=== PATIENT | male | born 1955 | race Caucasian/White ===

== ENCOUNTER 2020-02-19 14:42 | Inpatient (IN) | payer OTHER ==
[~2020-02-19] VITALS: Ht 175.2 cm; Wt 104.9 kg
[2020-02-19] MEDS ORDERED: TYLENOL325 M1 PO (15:07)
[2020-02-19] MEDS ORDERED: VENTOLIN,PR2 MG/5 ML PO (15:08)
[2020-02-19] MEDS ORDERED: AMIODARONE HYD200 MG PO (15:10)
[2020-02-19] MEDS ORDERED: ASPIRIN ADULT L81 M1 PO (15:11)
[2020-02-19] MEDS ORDERED: BUSPIRONE10 MG PO (15:12)
[2020-02-19] MEDS ORDERED: CELEXA10 MG PO (15:13)
[2020-02-19] MEDS ORDERED: VITAMIN B-125000 MC2 PO (15:15)
[2020-02-19] MEDS ORDERED: COLACE100 MG PO (15:16)
[2020-02-19] MEDS ORDERED: TRICOR145 M1 PO (15:16)
[2020-02-19] MEDS ORDERED: NOVOLOG FL100 UNIT/2 SC (15:17)
[2020-02-19] MEDS ORDERED: IMDUR SA30 MG PO (15:18)
[2020-02-19] MEDS ORDERED: PHILLIPS' MILK311 MG PO (15:19)
[2020-02-19] MEDS ORDERED: METOPROLOL TART75 MG PO (15:20)
[2020-02-19] MEDS ORDERED: GENVOYA TABLET1 EACH PO (15:21)
[2020-02-19] MEDS ORDERED: MELATONIN3 MG PO (15:22)
[2020-02-19] MEDS ORDERED: LATU80TA PO (15:23)
[2020-02-19] MEDS ORDERED: ZOFRAN4 MG IV (15:24)
[2020-02-19] MEDS ORDERED: TRILEPTAL300 MG PO (15:25)
[2020-02-19] MEDS ORDERED: PROTONIX40 MG PO (15:25)
[2020-02-19] MEDS ORDERED: POTASSIUM CHLO20 ME3 PO (15:27)
[2020-02-19] MEDS ORDERED: CRESTOR20 M1 PO (15:28)
[2020-02-19] MEDS ORDERED: FLOMAX0.4 MG PO (15:32)
[2020-02-19] MEDS ORDERED: Coumadin5 MG PO (15:33)
--- NOTE | 2020-02-19 16:30 | NUR ---
ALEXANDRAAGUSTÍN a 64 year old M admitted via stretcher from the ADMITTING as a voluntary admission. Arrived on unit at 1630. ALLERGIES: SULFA. Vital signs are: 97.1-74-18 119/70. The client signed the following forms with stated understanding: Authorization For The Release of Medical Information, Clothing List, Consent to Voluntary Admission and Hospitalization, Consent and Release Forms/Receipt of Rights, Acknowledgement of Advance Directive Information, Behavioral Health Consent Form, and Informed Consent of Medications. Admitted under the services of Dr. MOLLY MONTANOKALA. A search was conducted and hazardous articles were removed. Client was oriented to the unit. MARTELL CARLOS
[2020-02-19 16:38] VITALS: BP 119/70
[2020-02-19] MEDS ORDERED: VITAMIN E400 UNI1 PO (16:38)
[2020-02-19] MEDS ORDERED: JARDIANCE25 MG PO (16:40)
[2020-02-19] MEDS ORDERED: GLUCOPHAGE1000 MG PO (16:42)
[2020-02-19] MEDS ORDERED: DEXILANT60 M1 PO (16:44)
[2020-02-19] MEDS ORDERED: ZESTRIL10 MG PO (16:45)
[2020-02-19] MEDS ORDERED: VASCEPA1 G1 PO (16:50)
[2020-02-19] MEDS ORDERED: MULTIVITAMIN PO (16:55)
[2020-02-19] MEDS ORDERED: FOLIC ACID PO (16:55)
--- NOTE | 2020-02-19 17:00 | NUR ---
DR. SANDOVAL NOTIFIED OF NEW ADMISSION, MEDICATION AND DIAGNOSIS UPDATE FOR REVIEW. PATEINT WILL BE UNDER THE CARE OF DR. BRIGHT.
[2020-02-19] MEDS ORDERED: OZEMPIC1 MG/0.75 SQ (17:02)
--- NOTE | 2020-02-19 17:05 | NUR ---
NASAL SWAB COLLECTED FOR COVID 19, TOLERATED WELL.
[2020-02-19 17:24] LABS: BILIRUBIN Negative; BLOOD Trace-Intact (NEGATIVE); CLARITY Clear (CLEAR); COLOR Yellow (YELLOW); GLUCOSE 3+; KETONE Negative; LEUKO ESTERASE Negative (NEGATIVE); NITRITE Negative (NEGATIVE); SPECIFIC GRAVITY 1.025 (1.001-1.030); UROBILINOGEN 0.2 E.U./dl (0.0-1.0)
[2020-02-19 17:30] LABS: BACTERIA TRACE; EPITHELIAL CELLS 0-2; MUCOUS TRACE; RBC 16-20 rbc/hpf (0-2); WBC 0-2 wbc/hpf (0-5)
--- NOTE | 2020-02-19 17:48 | NUR ---
CONSULT FOR MEDICAL MANAGEMENT PLACED UNDER PER .
[2020-02-19 17:59] LABS: INTERNATIONAL NORM RATIO 1.1 (2.0-3.5)
--- NOTE | 2020-02-19 18:30 | NUR ---
DR. BARNES NOTIFIED OF PATIENT REPORTING HAVING 1 SEIZURE YEARS AGO. NEW ORDER FOR DEPAKOTE 250MG PO TID.
[2020-02-19 18:44] VITALS: BP 119/70
--- NOTE | 2020-02-19 19:04 | NUR ---
DR. SANDOVAL NOTIFIED OF INR RESULTS AND LAST INR FROM [facility], NEW ORDERS FOR COUMADIN 10MG TO BE GIVEN AT HS.
--- NOTE | 2020-02-19 19:21 | NUR ---
MARTELL ANNE NOTIFIED OF NEW ADMISSION.
[2020-02-19 20:00] VITALS: BP 111/74
--- NOTE | 2020-02-19 21:48 | NUR ---
Patient alert and oriented x4. Mood calm,pleasant,cooperative but with slight underlying irritability noted. Patient interactive with staff and other patients. Patient denies any SI/HI or hallucinations at this time. Encouraged patient to contract for safety when having these thoughts. No s/s of any responding to any internal stimuli noted at this time. Patient compliant with HS medications without any difficulty. Provided 1:1 for emotional support and therapeutic communication. Redirected when needed. Plan to continue to encourage medication compliance. Continue to encourage patient to contract for safety,continue to use his coping skills,and encourage patient to talk with staff. Also will continue to provide emotional support,therapeutic communication and continue to redirect when needed/appropriate. Will also continue to monitor moods/behaviors. Q 15 minute safety checks continued and maintained. See [facility] flowsheet for further documentation.
--- NOTE | 2020-02-20 05:40 | NUR ---
Patient slept approx. 7.5 hours throughout shift. Q 15 minute safety checks continued and maintained.
[2020-02-20 06:08] LABS: BASO % 0.4 % (0.0-1.0); EOS # 0.3 10*3/uL (0.0-0.4); EOS % 3.4 % (1.0-4.0); HEMATOCRIT 42.2 % (42.0-52.0); LYMPH % 26.4 % (27.0-41.0); MEAN CELL VOLUME 81.3 fl (80.0-94.0); MEAN CORPUSCULAR HGB 26.6 pg (27.0-31.0); MEAN CORPUSCULAR HGB CONC 32.7 g/dl (33.0-37.0); MEAN PLATELET VOLUME 8.8 fl (9.6-12.3); MONO # 0.9 10*3/uL (0.1-1.0); NEUT # 4.4 10*3/uL (2.3-7.9); NEUT % 57.4 % (47.0-73.0); PLATELET COUNT AUTOMATED 271 10*3/uL (130-400); RED BLOOD COUNT 5.19 10*6/uL (4.50-5.90); RED CELL DISTRI WIDTH 21.9 % (0-14.5); WHITE BLOOD COUNT 7.6 10*3/uL (4.8-10.8)
[2020-02-20 06:14] LABS: ALBUMIN 3.3 gm/dl (3.1-4.5); BUN 12 mg/dl (7-24); CHLORIDE 106 mmol/L (98-107); CREATININE 0.71 mg/dL (0.70-1.30); POTASSIUM 4.2 mmol/L (3.5-5.1); SGOT/AST 10 IU/L (3-35); SGPT/ALT 26 U/L (12-78); SODIUM 136 mmol/L (136-145)
[2020-02-20 06:24] LABS: ALKALINE PHOSPHATASE 34 U/L (45-117); INTERNATIONAL NORM RATIO 1.1 (2.0-3.5); TOTAL PROTEIN 6.5 gm/dL (6.4-8.2)
[2020-02-20 07:00] LABS: VITAMIN D, 25-HYDROXY 25.1 ng/mL (30-100)
[2020-02-20 08:40] VITALS: BP 112/70
--- NOTE | 2020-02-20 08:54 | NUR ---
[facility] at this time, updated with abnormal labs: elevated ammonia and b12, low vitamin d.
[2020-02-20 09:09] VITALS: BP 92/50
--- NOTE | 2020-02-20 09:56 | NUR ---
DR. CRESPO ON UNIT TO ASSESS PATIENT.
--- NOTE | 2020-02-20 11:36 | NUR ---
PSYCHOSOCIAL HX COMPLETED THIS DATE.
--- NOTE | 2020-02-20 15:55 | NUR ---
P- Depressed mood, pt reports feelings of hopelessness and continued thoughts about "taking a whole bunch of pills". Contracts for safety. Preoccupied with fluid restrictions. I- Orientation, mood and behaviors assessed. Assessed pt for SI/HI, intent or plan. Assessed pt for s/s hallucinations, paranoia and/or delusions. Medications administered as per physician's orders. Education provided. Encouraged pt to attend and participate in morris milieu groups and activities. R- Pt is alert and oriented x4. Memory appears to be intact. Resps easy and even on room air. Speech is slow, coherent, delayed response time noted. Able to make needs known without difficulty. Pt reports depressed mood, anxious at times. Pt reports feeling hopeless. Pt reports continued suicidal thoughts about "taking a whole bunch of pills". Pt does contract for safety on the unit. Jimena Bergeron JIGSAW OPERATOR aware. Pt remains on q15 min monitoring per policy. Pt denies homicidal ideations. Pt denies hallucinations, no response to internal stimuli noted. No paranoia or delusions noted. Pt is medication compliant without difficulty. Education provided to pt regarding medication changes and pt agreeable with plan, voices hope for the future that these change will improve his mood/situation. Pt remains preoccupied with fluid restrictions but has been compliant. Education provided as needed. No aggressive behaviors. No distress noted. P- Plan to continue current treatment, continue to monitor mood and behaviors, provide appropriate reorientation and redirection as needed. Continue to encourage medication compliance as well as group attendance and participation.
--- NOTE | 2020-02-20 17:04 | NUR ---
SPOKE WITH RE: COUMADIN. MADE AWARE INR TODAY 1.1, STATES TO GIVE REGULARLY SCHEDULED COUMADIN 5MG PO TONIGHT AND ORDER INR FOR TOMORROW MORNING TO REASSESS.
[2020-02-20 20:00] VITALS: BP 110/71
--- NOTE | 2020-02-20 20:15 | NUR ---
ATE SNACK AND WENT TO BED. ISOLATIVE FROM PEERS AND STAFF. MEDICATION COMPLIANT. REMAINS FRUSTRATED WITH FLUID RESTRICTIONS. CONTRACTS FOR SAFETY. MINIMAL VERBAGE FROM CLIENT. 2 OR 3 WORD ANSWERS. WILL CONTINUE TO MONTIOR FOR BEHAVIORS/MOOD CHANGES AND Q15 MIN AND PRN FOR SAFETY
--- NOTE | 2020-02-21 06:27 | NUR ---
SLEPT WELL PAST 2300PM
[2020-02-21 06:30] LABS: INTERNATIONAL NORM RATIO 1.7 (2.0-3.5)
[2020-02-21 07:24] VITALS: BP 125/59
--- NOTE | 2020-02-21 07:35 | NUR ---
PT IS RESTING QUIETLY IN BED, NO TX GIVEN AT THIS TIME.
--- NOTE | 2020-02-21 10:34 | NUR ---
DR. KEYS ON UNIT TO ASSESS PATIENT AND UPDATED ON INR 1.7, CONTINUE WITH COUMADIN 5MG DAILY.
--- NOTE | 2020-02-21 18:15 | NUR ---
PT ISOLATIVE TO HIS ROOM AND WITHDRAWN TO HIMSELF. ENCOURAGED PT TO ATTEND ACTIVITIES IN THE GROUP ROOM AND PT DECLINED. MEDICATION COMPLIANT WITHOUT DIFFICULTY. SEE [facility] FLOWSHEET FOR SPECIFIC MONITORING. CONTINUE TO MONITOR BEHAVIORS WITH Q15 MINUTE SAFETY CHECKS.
[2020-02-21 20:00] VITALS: BP 115/62
--- NOTE | 2020-02-21 21:53 | NUR ---
ATE SNACK THEN ISOLATIVE TO ROOM. BSG DONE AND NO COVERAGE NEEDED. MEDICATION COMPLIANT. CONTRACTS FOR SAFETY BUT REFUSES TO HAVE 1:1.
--- NOTE | 2020-02-22 03:39 | NUR ---
24 HR chart check completed.
[2020-02-22 06:48] LABS: BUN 14 mg/dl (7-24); CHLORIDE 107 mmol/L (98-107); CREATININE 0.67 mg/dL (0.70-1.30); POTASSIUM 4.1 mmol/L (3.5-5.1); SODIUM 136 mmol/L (136-145)
--- NOTE | 2020-02-22 06:51 | NUR ---
WEIGHT DONE, LABS DRAWN. SLEPT WELL ALL NIGHT. CONTINUES TO BE ISOLATIVE TO ROOM. CONTRACTS FOR SAFETY BUT DOESN'T WANT TO TALK ABOUT SUICIDAL IDEATIONS
[2020-02-22 06:57] LABS: INTERNATIONAL NORM RATIO 2.1 (2.0-3.5)
[2020-02-22 08:00] VITALS: BP 129/68
--- NOTE | 2020-02-22 08:00 | NUR ---
Patient in dining room with peers eating breakfast with no c/o discomfort. Respirations easy and regular. Vital signs stable. No overt distress. NATALIYA RAND
--- NOTE | 2020-02-22 09:00 | NUR ---
Treatment Plan meeting was held this a.m. with Dr. Crouch, SULAIMAN Vernon, RN, AT, WOOD PATTERNMAKER APPRENTICE-S and Buttermilk Drier Operator. Plan for discharge Next Week Pt. will return home at discharge at this pointe.
--- NOTE | 2020-02-22 09:30 | NUR ---
Faxed inpatient mental health admission clinical to [facility]. Awaiting response.
--- NOTE | 2020-02-22 11:44 | NUR ---
DR. KEYS NOTIFIED OF LABS, OKAY TO INCREASE FLUID RESTRICTIONS TO 2000ML, CHANGE DIET TO REGULAR WITH BLOOD SUGAR CHECKS IN THE AM.
--- NOTE | 2020-02-22 11:54 | NUR ---
CLARIFIED ORDER FOR HUMALOG SLIDING SCALE WITH DR. ANNE. STATES TO DISCONTINUE ACHS COVERAGE AND CHANGE TO AM SLIDING SCALE COVERAGE WITH ORDERED GLUCOSCAN. REPEATED BACK AND WITNESSED BY SECOND RN.
--- NOTE | 2020-02-22 14:03 | NUR ---
Met with pt individually this AM. Pt provided his history with depression and suicidal ideations. Pt denies current ETOH use/abuse with his last drink of ETOH on 11/02/19. Pt stated that he never knew that ETOH is a depressant and once he learned that it is, pt has no interest in it. Pt stated that he drank to help decrease his depression never realizing that it was making the depression worse. Pt shared that after his med changes at [facility] psychiatric unit, his depression has worsened. Pt is unable to recall what psych meds he was taking prior to his [facility] admission. Per pt, he has a very small social support system. Pt reports that he is not close to his siblings. He does have a couple of friends from his yarsani, [employer] in [facility]. Discussed discharge needs. Pt is current with [facility]. However, pt is not pleased with telehealth and finds that receiving counseling over the phone as not beneficial at all to him. Discussed other follow-up options that may offer "in person" appointments. Pt stated that he would consider this but admits that when he is severely depressed he has difficulty driving. Pt denies significant trauma in his life. Pt did voice that he is quite upset about the ordered restrictions on his fluid and caloric intake. Pt continued that these restrictions cause him to feel more depressed. Discussed support for pt when he discharges to home. Pt stated that his friend from [facility] had offered to see pt 2x a week. Discussed this further. Encouraged pt to agree to this offer. Time with pt was interrupted by nursing students in the room to check pt's blood sugar level. After leaving pt, discussed pt's concerns about his intake restrictions with RN. RN will speak to hospitalist about these concerns.
--- NOTE | 2020-02-22 15:41 | NUR ---
PM GROUP PT DID NOT ATTEND AFTERNOON GROUP THERAPY. PT STAYED IN HIS ROOM
--- NOTE | 2020-02-22 18:39 | NUR ---
Shift chart check completed.
[2020-02-22 20:00] VITALS: BP 97/54
--- NOTE | 2020-02-22 21:57 | NUR ---
24 HR chart check completed.
--- NOTE | 2020-02-22 22:15 | NUR ---
P-DEPRESSED AND HOPELESS. I-PROVIDED ACTIVE LISTENING, 1:1 EMOTIONAL SUPPORT. MEDICATION ADMINISTERED PER PHYSICIANS ORDERS. R-ACCEPTED ACTIVE LISTENING AND EMOTIONAL SUPPORT. MEDICATION COMPLIANT. P-WILL CONTINUE TO MONITOR MOODS, SI/HI, AND ENCOURAGE TO CONTRACT FOR SAFETY.
--- NOTE | 2020-02-23 05:14 | NUR ---
PT SLEPT 7.5 HOURS WITH 1 AWAKENING.
--- NOTE | 2020-02-23 06:57 | NUR ---
DR. GUILLEN NOTIFIED OF CRITICAL HIGH AMMONIA LEVEL 63. NNO, CONTINUE CURRENT LACTULOSE ORDER.
[2020-02-23 07:30] LABS: INTERNATIONAL NORM RATIO 2.6 (2.0-3.5)
[2020-02-23 08:01] VITALS: BP 149/89
--- NOTE | 2020-02-23 08:30 | NUR ---
Treatment Plan meeting was held this a.m. with Dr. Crouch via telephone, CAREER GUIDANCE TECHNICIAN Janeen, RN, AT, CRUSHER PLANT OPERATOR-S and High School French Teacher in attendance. Plan for discharge Next Week. Pt. will return home at discharge.
--- NOTE | 2020-02-23 08:31 | NUR ---
DR ACKERMAN ON UNIT TO ASSESS PATIENT, UPDATE PROVIDED.
--- NOTE | 2020-02-23 11:13 | NUR ---
SPOKE TO DR ANNE ABOUT PATIENTS SLIDING SCALE.
--- NOTE | 2020-02-23 11:45 | NUR ---
Individual time spent with pt this AM. Pt stated that he remains depressed but admits to a very small improvement in his mood. Discussed suicidality. Pt admits to SI most of the time but he can remember a long period of time when he did not have those thoughts. Pt spoke of his mom who lived to be 94. Pt stated that he stayed with her and cared for her. Pt shared that he enjoyed being with his mom and that she acted much younger than her age. Pt smiled as he reminisced. Discussed negative self-talk and how detrimental that can be to one's mood. Pt shared about his self-talk. Discussed self-affirmations and the benefits of these. Educated pt further about the use of affirmations. Pt stated that he would be willing to try a few. Discussed discharge plan further. Pt is willing to attend [facility]. Pt displayed a flat affect but did make proper eye contact. Pt continues to have SI with thoughts of "downing a lot of pills." However, pt is motivated to feel better as he states he wants to return to doing things that he once enjoyed.
--- NOTE | 2020-02-23 11:53 | NUR ---
AM GROUP PT ATTENDED MORNING GROUP THERAPY FOR ABOUT 20 MINUTES BUT WAS CALLED OUT BY THE SLACKMAN FOR A PRIVATE SESSION. THIS IS THE FIRST TIME PT HAS ATTENDED AND WAS CONTENT TO SIT AND OBSERVE.
--- NOTE | 2020-02-23 15:46 | NUR ---
PM GROUP PT ATTENDED AFTERNOON GROUP THERAPY FOR A SHORT TIME. PT SAT AND STARED OUT THE WINDOW AND DID NOT PARTICIPATE IN AN ACTIVITY OR CONVERSATION. PT HEARD ANOTHER PT ASK TO GO LAY DOWN AND THEN ASKED HIMSELF A FEW MINUTES LATER. PT LEFT THE DAYROOM AND DID NOT RETURN.
--- NOTE | 2020-02-23 17:23 | NUR ---
PATIENT COMPLAINING OF SHORTNESS OF BREATH. SPOKE TO DR ANNE TO MAKE AWARE. DR ANNE REQUESTED VITAL SIGNS. VITALS [id number]/71-98%RA. NOTIFIED OF VITALS. RESPIRATORY UP TO ADMINISTER BREATHING TREATMENT PER PATIENTS REQUEST. WILL CONTINUE TO MONITOR FOR ANY SHORTNESS OF BREATH.
[2020-02-23 19:45] VITALS: BP 113/72
--- NOTE | 2020-02-23 21:17 | NUR ---
24 HR chart check completed.
--- NOTE | 2020-02-23 23:26 | NUR ---
P-DEPRESSED MOOD. I-ORIENTATION, MOOD AND BEHAVIORS ASSESSED. ASSESSED SI/HI, INTENT OR PLAN. ASSESSED PT FOR HALLUCINATIONS, PARANOIA AND/OR DELUSIONS. PROVIDED REORIENTATION AND REDIRECTION. MEDICATIONS ADMINISTERED PER PHYSICIANS ORDERS. INDEPENDENT WITH ADLS ENCOURAGED TO CALL FOR HELP. R-MEDICATION COMPLIANT. ALERT AND ORIENTED X4. DENIES AH/VH, PARANOIA AND/OR DELUSIONS. "I FEEL BETTER THAN WHEN I CAME IN." DENIES SI/HI. P-WILL CONTINUE TO MONITOR FOR SI/HI, ENCOURAGE TO DISCUSS EMTIONAL NEEDS, PT CONTRACTS FOR SAFETY.
--- NOTE | 2020-02-24 06:00 | NUR ---
PT SLEPT 7-8 HOURS OF UNITERRUPTED SLEEP. Q 15 MIN CHECKS MAINTAINED.
[2020-02-24 06:25] LABS: INTERNATIONAL NORM RATIO 2.5 (2.0-3.5)
--- NOTE | 2020-02-24 06:36 | NUR ---
DR GUILLEN NOTIFIED OF CRITICAL LEVEL OF AMMONIA OF 60. DR BARNES TO BE NOTIFIED & ORDERS ALREADY IN PLACE
[2020-02-24 07:49] VITALS: BP 119/68
--- NOTE | 2020-02-24 08:59 | NUR ---
DR ACKERAMN ON UNIT TO ASSESS PATIENT, UPDATE PROVIDED.
--- NOTE | 2020-02-24 11:43 | NUR ---
AM GROUP PT ATTENDED MORNING GROUP THERAPY FOR A SHORT TIME. PT ASKED FOR A GINGERALE, SAT AND DRANK IT AND THEN GOT UP, STATED, "I AM GOING TO WALK FOR A LITTLE BIT AND THEN GO BACK TO MY ROOM" PT LEFT THE DAYROOM AND DID NOT RETURN
--- NOTE | 2020-02-24 12:57 | NUR ---
ORTHOSTATIC BP'S DONE ON PATIENT VIA AUTOMATIC BP CUFF. BP MEASURED LOW ON LYING, SITTING AND STANDING. UPON STANDING, PATIENT BECAME SHAKY AND FELL BACK ON TO HIS BED. MANUAL BLOOD PRESSURE AND MANUAL PULSE OBTAINED AT THIS TIME: BP 106/72 LAYING WITH APICAL PULSE OF 96. AFTER PATIENT LAYED BACK DOWN HE STATED "I FEEL FINE", PATIENT WAS ALERT AND ORIENTED X4. DR BARNES WAS NOTIFIED AND ORTHO BP'S NOW NEED TO BE DONE MANUALLY. WILL REPEAT THIS SHIFTS ORTHOS AT 1400.
--- NOTE | 2020-02-24 13:35 | NUR ---
P: PATIENT IS SAD, DEPRESSED, HOPELESS/HELPLESS, ANXIOU, ISOLATIVE/WITHDRAWN. I: ONE ON ONE FOR EMOTIONAL SUPPORT. PROVIDE SPACE NEEDED. ALLOW PATIENT TO TALK ABOUT HIS FEELINGS. ENCOURAGE PATIENT TO ATTEND GROUP ACTIVITIES AND SOCIALIZE WITH OTHERS. ENCOURAGE PATIENT TO CONTINUE MEDICATION COMPLIANCE. R: PATIENT IS ALERT AND ORIENTED TO PERSON, PLACE, TIME, AND SITUATION. PATIENT IS SAD AND DPRESSED, HOWEVER STATES HE IS FEELING A LITTLE BETTER. PATIENT FEELS HOPELESS/HELPLESS, ANXIOUS, ISOLATIVE AND WITHDRAWN. PATIENT DENIES ANY SUICIDAL IDEATION AT THIS TIME. PATIENT DENIES HOMICIDAL IDEATION. PATIENT DID PARTICIPATE IN GROUP ACTIVITY. PATIENT IS INDEPENDENT WITH ACTIVITIES OF DAILY LIVING. PATIENT AMBULATES WITH STEADY GAIT. SET UP FOR MEALS. INTAKES ARE GOOD WITH ADEQUATE FLUIDS. CONTINENT OF BLADDER. MEDICATION COMPLIANT WITH EDUCATION. P: WILL CONTINUE TO MONITOR FOR SUICIDAL IDEATION. WILL MONITOR FOR MOOD/BEHAVIORS. Q15 MINUTE SAFETY CHECKS MAINTAINED. WILL CONTINUE TO ENCORAUGE MEDICATION COMPLIANCE. WILL CONTINUE TO ENCOURAGE GROUP ACTIVITIES AND SOCIALIZATION WITH PEERS.
--- NOTE | 2020-02-24 15:43 | NUR ---
PM GROUP PT DID NOT ATTEND AFTERNOON GROUP THERAPY. PT WAS IN BED RESTING.
[2020-02-24 19:43] VITALS: BP 113/86
--- NOTE | 2020-02-24 20:30 | NUR ---
24 HR chart check completed.
--- NOTE | 2020-02-24 22:45 | NUR ---
DR. GUILLEN NOTIFIED OF ORTHOSTATIC BPS BEING LOW, PT ON FLUID RESTRICTION, PT ASYMPTOMATIC. DR. GUILLEN NOTIFIED OF PT BEING ON LOPRESSOR 75MG BID. DR. GUILLEN WILL REVIEW CHART.
--- NOTE | 2020-02-24 23:28 | NUR ---
BP RECHECKED PER DR. GUILLEN 90/68. ORDER FOR IV FLUIDS D/C'D PER DR. GUILLEN. WILL REASSESS ORTHOS IN AM. PT REMAINS ASYMPTOMATIC.
--- NOTE | 2020-02-24 23:52 | NUR ---
PT ALERT AND OREINTED X4. HE IS ANXIOUS, DEPRESSED, HOPELESS/HELPLESS. DENIES SI AT THIS TIME, DOES CONTRACT FOR SAFETY. PT ENCOURAGED TO DISCUSS FEELINGS. PT WATCHED MOVIES IN DINING ROOM, LESS ISOLATIVE. MEDICATION COMPLIANT.
--- NOTE | 2020-02-25 05:39 | NUR ---
PT SLEPT 1 HOUR.
--- NOTE | 2020-02-25 06:13 | NUR ---
DR. GUILLEN NOTIFIED WITH AN UPDATE OF BP 110/70 PULSE 62. ORTHOS NEGATIVE. NNO, MANY CONTINUE CURRENT MEDICATIONS.
--- NOTE | 2020-02-25 06:32 | NUR ---
PT SLEEPING AT THIS TIME, WILL ASSESS WEIGHT LATER.
--- NOTE | 2020-02-25 07:18 | NUR ---
Faxed continued review stay clinical to [facility]. Awaiting response.
[2020-02-25 07:49] VITALS: BP 102/58
--- NOTE | 2020-02-25 09:00 | NUR ---
Treatment Plan meeting was held this a.m. with Dr. Crouch, RN, AT, TEACHER DANCING-S and Paint Grinder. Plan for discharge Next Week. Pt. will return home at discharge.
--- NOTE | 2020-02-25 10:29 | NUR ---
SPOKE WITH DR ANNE RE: DR PAINTER REQUEST TO RE-EVALUATE PT FLUID RESTRICTION DUE TO PT BEING FROM HOME AND WILL BE NON -COMPLIANT WHEN RETURNING HOME. ALSO ASKED IF THEY COULD CONSIDER DISCONTINUING ONE OF HIS HTN MEDS BECAUSE HIS BP HAS BEEN RUNNING LOW AND THE LOW BP IS CURBING DR BARNES'S ABILITIES TO TITRATE MEDICATIONS. PER HE WILL TAKE A LOOK.
--- NOTE | 2020-02-25 11:55 | NUR ---
AM GROUP PT ATTENDED MORNING GROUP THERAPY FOR A SHORT PERIOD AND REFUSES ANY ACTIVITY OFFERED. PT WILL ENGAGE IN CONVERSATION IF INITIATED. PT EXPRESSED NO SUICIDAL IDEATIONS WHILE IN GROUP.
--- NOTE | 2020-02-25 13:53 | NUR ---
IP 6 days anthony with a NRD 02/[address] [facility]. Ref # [id number]
--- NOTE | 2020-02-25 15:44 | NUR ---
PM GROUP PT DID NOT ATTEND AFTERNOON GROUP THERAPY. PT WAS IN BED RESTING.
[2020-02-25 19:57] VITALS: BP 102/60
--- NOTE | 2020-02-25 21:46 | NUR ---
Patient alert and oriented x4. Mood calm,pleasant,cooperative but with slight underlying irritability noted and also isolative to self while in diningroom with other patients. Patient interactive with staff only. Patient denies any SI/HI or hallucinations at this time. Encouraged patient to contract for safety when having these thoughts. No s/s of any responding to any internal stimuli noted at this time. Patient compliant with HS medications without any difficulty. Provided 1:1 for emotional support and therapeutic communication. Redirected when needed. Plan to continue to encourage medication compliance. Continue to encourage patient to contract for safety,continue to use his coping skills,and encourage patient to talk with staff. Also will continue to provide emotional support,therapeutic communication and continue to redirect when needed/appropriate. Will also continue to monitor moods/behaviors. Q 15 minute safety checks continued and maintained. See [facility] flowsheet for further documentation.
--- NOTE | 2020-02-26 00:20 | NUR ---
24 HR chart check completed.
--- NOTE | 2020-02-26 05:40 | NUR ---
Patient slept approx. 6 hours throughout shift. Q 15 minute safety checks continued and maintained.
--- NOTE | 2020-02-26 06:26 | NUR ---
Patient sleeping and refused to allow orthos and weight to be done at this time.
[2020-02-26 06:53] LABS: BUN 14 mg/dl (7-24); CHLORIDE 107 mmol/L (98-107); CREATININE 0.79 mg/dL (0.70-1.30); POTASSIUM 4.8 mmol/L (3.5-5.1); SODIUM 138 mmol/L (136-145)
[2020-02-26 07:42] VITALS: BP 128/69
--- NOTE | 2020-02-26 09:00 | NUR ---
Treatment Plan meeting was held this a.m. with Dr. Crouch via telephone, SULAIMAN Vernon RN, HOG CUTTER-S and Inspector Electromechanical in attendance. Plan for discharge Next week. Pt. will return home at discharge.
--- NOTE | 2020-02-26 09:34 | NUR ---
ON UNIT TO SEE PT AT THIS TIME. DISCUSSED PT'S DISPLEASURE WITH FLUID RESTRICTIONS AND THAT PT IS BECOMING INCREASINGLY ARGUEMENTATIVE AND NONCOMPLIANT WITH FLUID RESTRICTIONS. ALSO MADE AWARE OF PT'S RECENT DAILY WEIGHTS - 02/23-209.4, 02/24-213.8, 02/25-216.4. STATES HE WILL ORDER ADDITIONAL LABS BEFORE MAKING ANY CHANGES TO FLUID RESTRICTIONS.
[2020-02-26 09:42] LABS: BASO % 0.5 % (0.0-1.0); EOS # 0.2 10*3/uL (0.0-0.4); EOS % 2.8 % (1.0-4.0); LYMPH # 1.5 10*3/uL (1.3-4.4); LYMPH % 18.7 % (27.0-41.0); MEAN CELL VOLUME 83.9 fl (80.0-94.0); MEAN CORPUSCULAR HGB 27.5 pg (27.0-31.0); MEAN CORPUSCULAR HGB CONC 32.8 g/dl (33.0-37.0); MEAN PLATELET VOLUME 9.4 fl (9.6-12.3); MONO % 12.3 % (3.0-9.0); NEUT # 5.3 10*3/uL (2.3-7.9); NEUT % 64.6 % (47.0-73.0); PLATELET COUNT AUTOMATED 270 10*3/uL (130-400); RED BLOOD COUNT 4.77 10*6/uL (4.50-5.90); RED CELL DISTRI WIDTH 22.6 % (0-14.5); WHITE BLOOD COUNT 8.2 10*3/uL (4.8-10.8)
--- NOTE | 2020-02-26 09:48 | NUR ---
DR ACKERMAN CALLED AND SPOKE WITH THIS NURSE AND ADVISED THAT WE CAN GO AHEAD AND DC PT FLUID RESTRICITON.
[2020-02-26 09:53] LABS: ALBUMIN 3.1 gm/dl (3.1-4.5); ALKALINE PHOSPHATASE 41 U/L (45-117); BUN 14 mg/dl (7-24); CHLORIDE 108 mmol/L (98-107); CREATININE 0.86 mg/dL (0.70-1.30); POTASSIUM 4.8 mmol/L (3.5-5.1); SGOT/AST 11 IU/L (3-35); SGPT/ALT 34 U/L (12-78); SODIUM 139 mmol/L (136-145); TOTAL PROTEIN 6.1 gm/dL (6.4-8.2)
--- NOTE | 2020-02-26 10:54 | NUR ---
Received call from Ila at [facility]. LCD 02/23. Faxed continued review stay clinical to Ila. Awaiting response.
--- NOTE | 2020-02-26 14:24 | NUR ---
NO ADVERSE MOODS OR BEHAVIORS NOTED. PT ALERT TO PERSON, PLACE, TIME AND SITUATION. PT MED COMPLIANT WITHOUT DIFFICULTY, MED EDUCATION PROIVIDED. PT CALM, MOOD IS STABLE. NO HALLUCINATIONS OR DELUSIONS NOTED. PT DENIES ANY SUICIDAL THOUGHTS AT THIS TIME. PT AMBULATORY THROUGHTOUT UNIT, GAIT STEADY. PT CONTINENT OF BOWEL AND BLADDER. PLAN IS TO MONITOR PT BEHAVIORS ON Q15 MIN SAFETY CHECKS, ENCOURAGE MED COMPLIANCE AND PROVIDE MED EDUCATION, ENCOURAGE GROUP PARTICIPATION AND SOCIALIZATION.
--- NOTE | 2020-02-26 15:24 | NUR ---
IP anthony, LCD 02/27, NRD 02/28 per Ila at [facility].
[2020-02-26 20:00] VITALS: BP 98/60
--- NOTE | 2020-02-27 03:06 | NUR ---
P-ISOLATIVE, STABLE I-REDIRECTION WITH 1:1 THERAPEUTIC INTERVENTIONS AND PRESENT REALITY. EDUCATE AND ENCOURAGE MEDICATION COMPLIANCE R-PATIENT MEDICATON COMPLAINT WITH MOST MEDICATIONS AT HS. PATIENT PROVIDED NOURISHMENT AND FLUIDS AT HS. PATIENT WITH LIMITED INTERACTION WITH PEERS IN DINING AREA. PATIENT AMBULATORY ON UNIT WITH STEADY GAIT.PATIENT WITH NO HALLUCINATIONS OR DELUSIONS. PATIENT WITH NO HOMICIDAL OR SUICIDAL IDEATIONS. P-CONTINUE TO ENCOURAGE MEDICATION COMPLIANCE, ENCOURAGE GROUP THERAPY WHILE AWAKE
--- NOTE | 2020-02-27 06:25 | NUR ---
PATIENT SLEPT 7 HOURS OF INTERRUPTED SLEEP THROUGHOUT SHIFT. Q 15 MINUTE CHECKS MAINTAINED. 24 HR chart check completed.
[2020-02-27 07:55] VITALS: BP 118/62
[2020-02-27 07:56] VITALS: BP 118/62
--- NOTE | 2020-02-27 09:10 | NUR ---
DR ACKERMAN ON UNIT TO ASSESS PT, UPDATE PROVIDED. ADVISED OF PT WEIGHT INCREASE IN THE LAST 4 DAYS, DR SUTTON. ALSO ADVISED THAT PT IS REQUESTING 2ND BREAKFAST PER DR ACKERMAN PT CAN HAVE THREE MEALS AND SNACK, NO ADDITIONAL MEALS FULL MEALS.
--- NOTE | 2020-02-27 13:18 | NUR ---
P: PT REPORTS MOOD BEING DEPRESSED, STATES "THERE'S NOTHING GOING ON JUST SOMETHING CHEMICAL." PT CONTINUE TO VOICE SUICIDAL THOUGHTS STATING "I STILL HAVE THEM A LITTLE BIT BUT NOT MUCH BEFORE, BUT IF I DID, I WOULD TAKE PILLS. I: PROVIDE EMOTIONAL SUPPORT AND 1:1 FOR PT TO VOICE FEELINGS, ENCOURAGE PT TO VOICE SUICIDAL THOUGHTS AND VERBALLY CONTRACT FOR SAFETY, ENCOURAGE GROUP PARTICIPATION AND SOCIALIZATION R: PT ALERT TO PERSON, PLACE, TIME AND SITUATION. PT MED COMPLIANT WITHOUT DIFFICULTY, MED EDUCATION PROVIDED. PT CALM, MOOD IS STABLE. NO HALLUCINATIONS OR DELUSIONS NOTED. PT CONTINES TO STATE "I DO HAVE THE SUICIDAL THOUGHTS A LITTLE BIT." PT DOES VERBALLY CONTRACT FRO SAFETY IF SUCH THOUGHTS ARISE. PT AMBUALTORY THROUGHOUT UNIT, GAIT STEADY. PT CONTINENT OF BOWEL AND BLADDER. P: ENCOURAGE MED COMPLIANCE AND PROVIDE MED EDUCATION, MONITOR PT BEHAVIORS ON Q15 MIN SAFETY CHECKS, PROVIDE EMOTIONAL SUPPORT AND 1:1 FOR PT TO VOICE FEELINGS, ENCOURAGE GROUP PARTICIPATION AND SOCIALIZATION.
[2020-02-27 20:00] VITALS: BP 106/57
--- NOTE | 2020-02-28 01:07 | NUR ---
P-PREOCCUPIED I-REDIRECTION WITH 1:1 THERAPEUTIC INTERVENTIONS AND PRESENT REALITY. EDUCATE AND ENCOURAGE MEDICATION COMPLIANCE R-PATIENT MEDICATON COMPLAINT WITH MOST MEDICATIONS AT HS. PATIENT PROVIDED NOURISHMENT AND FLUIDS AT HS. PATIENT WITH INTERACTION WITH PEERS IN DINING AREA. PATIENT AMBULATORY ON UNIT WITH STEADY GAIT. PATIENT PREOCCUPIED WITH MEDICATIONS WHEN DISCHARGED. THIS NURSE EXPLAINED THE DISCHARGE PROCESS AND THAT PATIENT CAN BE EDUCATED ABOUT MEDICATIONS AT ANY TIME AND AT DISCHARGE. PATIENT ALSO REMINDED THAT IF ANY QUESTIONS ABOUT MEDICATIONS AFTER DISCHARGE THAT HE CAN CALL AND TALK TO THE NURSES ON THE UNIT ABOUT MEDICATIONS. PATIENT WITH NO HALLUCINATIONS OR DELUSIONS. PATIENT WITH NO HOMICIDAL OR SUICIDAL IDEATIONS. P-CONTINUE TO ENCOURAGE MEDICATION COMPLIANCE, ENCOURAGE GROUP THERAPY WHILE AWAKE
--- NOTE | 2020-02-28 06:51 | NUR ---
PATIENT DID NOT SLEEP THROUGHOUT SHIFT. Q 15 MINUTE CHECKS MAINTAINED. 24 HR chart check completed.
[2020-02-28 07:39] VITALS: BP 127/68
--- NOTE | 2020-02-28 09:05 | NUR ---
DR ACKERMAN ON UNIT TO ASSESS PATIENT, UPDATE PROVIDED.
--- NOTE | 2020-02-28 15:22 | NUR ---
CALL PLACED TO DR DE LA CRUZ REGARDING THE PATIENTS WEIGHT GAIN AND EDEMA TO LEGS AND FEET. DR DE LA CRUZON UNIT TO ASSESS PT. NEW ORDERS PLACED FOR LABS NOW, JD HOSE, AND A ONE TIME DOSE OF LASIX. EDUCATION PROVIDED MULTIPLE TIMES REGARDING FLUID RESTRICTIONS, MEDICATIONS, AND OTHER HEALTH CONCERNS. DR DE LA CRUZ ALSO SPOKE TO THE PATIENT REGARDING THESE CONCERNS WELL. PT AGREED HE NEEDS TO WATCH FLUID INTAKE AND HAS AGREED TO THE FLUID RESTRICTION. WILL CONTINUE TO MONITOR PT.
[2020-02-28 15:27] LABS: BASO % 0.6 % (0.0-1.0); EOS # 0.2 10*3/uL (0.0-0.4); EOS % 2.6 % (1.0-4.0); HEMATOCRIT 38.7 % (42.0-52.0); LYMPH # 1.7 10*3/uL (1.3-4.4); LYMPH % 26.2 % (27.0-41.0); MEAN CELL VOLUME 84.5 fl (80.0-94.0); MEAN CORPUSCULAR HGB 27.1 pg (27.0-31.0); MEAN PLATELET VOLUME 9.5 fl (9.6-12.3); MONO % 14.7 % (3.0-9.0); NEUT # 3.7 10*3/uL (2.3-7.9); NEUT % 54.8 % (47.0-73.0); PLATELET COUNT AUTOMATED 253 10*3/uL (130-400); RED BLOOD COUNT 4.58 10*6/uL (4.50-5.90); RED CELL DISTRI WIDTH 22.8 % (0-14.5); WHITE BLOOD COUNT 6.7 10*3/uL (4.8-10.8)
[2020-02-28 15:55] LABS: ALBUMIN 3.3 gm/dl (3.1-4.5); ALKALINE PHOSPHATASE 41 U/L (45-117); BUN 14 mg/dl (7-24); CHLORIDE 107 mmol/L (98-107); CREATININE 0.97 mg/dL (0.70-1.30); POTASSIUM 4.4 mmol/L (3.5-5.1); SGOT/AST 11 IU/L (3-35); SGPT/ALT 28 U/L (12-78); SODIUM 139 mmol/L (136-145); TOTAL PROTEIN 6.3 gm/dL (6.4-8.2)
--- NOTE | 2020-02-28 16:22 | NUR ---
PT A&O X3. PT STATED HE WAS WIDE AWAKE LAST NIGHT; HOWEVER HE DIDNT HAVE ANYTHING ON HIS MIND. STATED HE IS EATING GOOD. PT STATED HE FEELS A LITTLE SAD AND DEPRESSED BUT NOT AT THE DEGREE THAT HE DID ON ADMISSION. MEDICATION COMPLIANT. STATES HE FEELS THAT HIS MEDICATION IS HELPING BECAUSE HE DOES NOT FEEL DEPRESSED. EDUCATION PROVIDED REGARDING MEDICATIONS, FLUID INTAKE, AND EDEMA. PT STATES HE FEELS A LITTLE SUICIDAL. VERBALIZED A SAFETY CONTRACT. WILL CONTINUE TO MONITOR WEIGHT AND BEHAVIORS WITH Q15 MINUTE SAFETY CHECKS.
--- NOTE | 2020-02-28 17:51 | NUR ---
DR MALLOY UPDATED ON PT LABS. STATED FOR NOW HE WILL NOT ENFORCE A FLUID RESTRICTION. DR STATED PT HAS BEEN EDUCATED AND WILL SEE HOW THE PT CONTROLS HIS FLUID INTAKE AND IF THE PT CAN NOT CONTROL THE FLUID INTAKE THEN THEY WILL PLACE A FLUID RESTRICTION. WILL CONTINUE TO MONITOR THROUGH TOMORROW.
[2020-02-28 20:00] VITALS: BP 99/57
--- NOTE | 2020-02-28 21:11 | NUR ---
24 HR chart check completed.
--- NOTE | 2020-02-28 22:40 | NUR ---
P-PREOCCUPIED. DEPRESSED. I-ASSESSED FOR SI/HI, HALLUCINATIONS AND PARANOIA. PROVIDED REDIRECTION, DIVERSIONAL ACTIVITES AND 1:1 EMOTIONAL SUPPORT. ADMINISTERED MEDICATIONS PER PHYSICIANS ORDERS. R-PT DENIED SI/HI, HALLUCINATIONS AND PARANOIA. REPORTS HE IS STILL SOMEWHAT DEPRESSED BUT IS FEELING BETTER. ACCEPTED REDIRECTION, WATCHING TV WITH OTHER RESIDENTS AND VERBALIZED FEELINGS TO THIS NURSE. MEDICATION COMPLIANT. P-WILL CONTINUE TO MONITOR FOR SI/HI, MOODS AND BEHAVIORS. Q 15 MIN CHECKS MAINTAINED.
[2020-02-29 06:42] LABS: BASO # 0.1 10*3/uL (0.0-0.1); BASO % 0.7 % (0.0-1.0); EOS # 0.2 10*3/uL (0.0-0.4); HEMATOCRIT 39.7 % (42.0-52.0); LYMPH # 1.4 10*3/uL (1.3-4.4); MEAN CELL VOLUME 83.4 fl (80.0-94.0); MEAN CORPUSCULAR HGB 27.5 pg (27.0-31.0); MEAN PLATELET VOLUME 9.6 fl (9.6-12.3); MONO # 0.9 10*3/uL (0.1-1.0); MONO % 13.1 % (3.0-9.0); NEUT # 4.5 10*3/uL (2.3-7.9); NEUT % 63.6 % (47.0-73.0); PLATELET COUNT AUTOMATED 279 10*3/uL (130-400); RED BLOOD COUNT 4.76 10*6/uL (4.50-5.90); RED CELL DISTRI WIDTH 22.9 % (0-14.5); WHITE BLOOD COUNT 7.1 10*3/uL (4.8-10.8)
[2020-02-29 06:52] LABS: INTERNATIONAL NORM RATIO 3.2 (2.0-3.5)
[2020-02-29 06:58] LABS: ALBUMIN 3.1 gm/dl (3.1-4.5); ALKALINE PHOSPHATASE 41 U/L (45-117); BUN 16 mg/dl (7-24); CHLORIDE 106 mmol/L (98-107); CREATININE 0.84 mg/dL (0.70-1.30); POTASSIUM 3.8 mmol/L (3.5-5.1); SGOT/AST 13 IU/L (3-35); SGPT/ALT 24 U/L (12-78); SODIUM 138 mmol/L (136-145)
[2020-02-29 07:31] VITALS: BP 111/71
--- NOTE | 2020-02-29 09:00 | NUR ---
Treatment Plan meeting was held this a.m. with Dr. Crouch, SULAIMAN Vernon, SYD, COUNTY ATTORNEY-S and Pharmacy Data Analyst in attendance. Plan for discharge Saturday. Pt. will return home at discharge.
--- NOTE | 2020-02-29 11:40 | NUR ---
DR. VELEZ ON UNIT TO ASSESS PATIENT.
--- NOTE | 2020-02-29 12:38 | NUR ---
Met with pt individually this AM. Pt reports to an improving mood. Pt was more animated and conversive. Discussed events which led to [facility] admission. Discussed pt's discharge plan. Discussed pt's coping skills for when he returns home. Pt denies SI currently but did admit that he contiues to have fleeting moments of SI. Pt was spontaneous in conversation and was able to problem solve.
--- NOTE | 2020-02-29 12:51 | NUR ---
Faxed [facility] to [facility]. Awaiting response.
--- NOTE | 2020-02-29 16:55 | NUR ---
NO ADVERSE MOODS OR BEHAVIORS NOTED. BEHAVIORS MONITORED WITH Q15 MINUTE SAFETY CHECKS. MEDICATION COMPLIANT. MEDICATION EDUCATION PROVIDED. CONTINUE TO MONITOR BEHAVIORS WITH Q15 MINUTE SAFETY CHECKS AND ENCOURAGE MEDICATION COMPLIANCE. SEE [facility] FLOWSHEET FOR SPECIFIC MONITORING.
[2020-02-29 19:52] VITALS: BP 110/72
[2020-02-29 20:00] VITALS: BP 106/70
--- NOTE | 2020-02-29 20:43 | NUR ---
P-DEPRESSED. PREOCCUPIED. I-PROVIDED 1:1 EMOTIONAL SUPPORT, REDIRECTION AND MEDICATION EDUCATION. ASSESSED FOR SI/HI, HALLUCINATIONS, AND PARANOIA. WILL MONITOR SLEEP. R-ALERT AND ORIENTED X4. PT ACCEPTED 1:1 EMOTIONAL SUPPORT, REDIRECTION AND MED EDUCATION. DENIES SI/HI, HALLUCINATIONS AND PARANOIA. PT CONTRACTED FOR SAFETY. MEDICATION COMPLIANT. CALM, COOPERATIVE. WATCHING TV IN DINING ROOM AT THIS TIME. HAD HS SNACK. NO DISTRESS NOTED. P-WILL CONTINUE TO MONTIOR FOR SI/HI, MOODS AND BEHAVIORS. Q 15 MIN CHECKS MAINTAINED.
--- NOTE | 2020-03-01 05:54 | NUR ---
24 HR chart check completed.
--- NOTE | 2020-03-01 06:42 | NUR ---
PT SLEPT 1 HOUR.
[2020-03-01 07:40] LABS: INTERNATIONAL NORM RATIO 3.2 (2.0-3.5)
[2020-03-01 07:50] VITALS: BP 164/51
--- NOTE | 2020-03-01 08:30 | NUR ---
Treatment Plan meeting was held this a.m. with Dr. Crouch via telephone, SULAIMAN Vernon, RN, AT, CORRECTIONAL LIEUTENANT-S and Manager Retail in attendance. Plan for discharge at the end of the week. Pt. will return home at discharge.
--- NOTE | 2020-03-01 09:53 | NUR ---
PATIENT RECEIVED INFLUENZA VACCINE 0.5ML IN RIGHT DELTOID AND TOLERATED WELL.
--- NOTE | 2020-03-01 09:58 | NUR ---
PATIENT COMPLAINED OF BACK PAIN 03/05. PRN TYLENOL 650MG PO GIVEN AND ICE PROVIDED FOR BACK
--- NOTE | 2020-03-01 11:05 | NUR ---
DR VELEZ ON UNIT TO ASSESS PATIENT, UPDATE PROVIDED.
--- NOTE | 2020-03-01 12:23 | NUR ---
IP 2 additional days anthony per Ila restrepo [facility], NRD 03/02.
--- NOTE | 2020-03-01 13:20 | NUR ---
Changed pt's appointments at [facility] with Shilpa Alcantara to 03/17/20 at 09:30 (in person appt) and with Davida Hahn PhD to 03/14/20 at 16:00 (telehealth). Phoned and left a voicemail message with Dr Marsh's office notifying them that pt was currently admitted to [facility] and unable to attend his scheduled appt.
--- NOTE | 2020-03-01 15:55 | NUR ---
PM GROUP PT WAS IN AND OUT OF AFTERNOON GROUP THERAPY. PT DECLINES ANY ACTIVITY OFFERED AND IS CONTENT TO WATCH OR SOCIALIZE.
--- NOTE | 2020-03-01 15:56 | NUR ---
DR PRITCHETT ON UNIT TO ASSESS PT. PT IN THE SHOWER AT THIS TIME. PER DR PRITCHETT SHE STATED THAT THE PT SHOULD FOLLOW UP WITH DR WALLS OFFICE UPON DISCHARGE.
--- NOTE | 2020-03-01 17:49 | NUR ---
A&O X4. DEPRESSED MOOD. PT STATED HE IS WORRIED ABOUT DISCHARGE BECAUSE OF THE EDEMA IN HIS LEGS.EDUCATED PT ON MEDICATIONS AND UPDATED PT REGARDING THE MEDICATION HE HAS RUN OUT OF FROM HOME. GENVOYA. PT STATED HE FEELS RELIEVED THAT THINGS WERE FALLING IN PLACE. NO HALLUCINATIONS OR DELUSIONS NOTED. DISCUSSED PTS WEIGHT GAIN WITH DR VELEZ AND THE PT. THE PT RECEIVED A NEW ORDER FOR LASIX. PT CALM AND INTERACTIVE WITH STAFF AND PEERS. WILL CONTINUE TO MONITOR BEHAVIORS AND EDUCATE PT ON FLUID INTAKE AND MEDICATIONS. SEE [facility] FLOWSHEET FOR SPEIFIC MONITORING.
[2020-03-01 19:45] VITALS: BP 111/59
--- NOTE | 2020-03-01 20:28 | NUR ---
PT MANUAL BP 110/[address] SANDOVAL UPDATED THAT HS METOPROLOL HAS BEEN HELD THE PAST [address] SANDOVAL OK TO HOLD HS METOPROLOL, NO OTHER ORDERS RECEIVED.
--- NOTE | 2020-03-01 20:56 | NUR ---
PT C/O LOW BACK PAIN 02/03. PRN TYLENOL 650MG PO GIVEN PER PT REQUEST AT THIS TIME.
--- NOTE | 2020-03-01 21:56 | NUR ---
PRN TYLENOL INEFFECTIVE AT THIS TIME. PT REQUEST ICE PACK FOR LOW BACK. NO FURTHER COMPLAINTS AT THIS TIME.
--- NOTE | 2020-03-01 23:09 | NUR ---
P-DEPRESSED. PREOCCUPIED. I-PROVIDED 1:1 EMOTIONAL SUPPORT, REDIRECTION AND MEDICATION EDUCATION. ASSESSED FOR SI/HI, HALLUCINATIONS, AND PARANOIA. WILL MONITOR SLEEP. R-ALERT AND ORIENTED X4. PT ACCEPTED 1:1 EMOTIONAL SUPPORT, REDIRECTION AND MED EDUCATION. DENIES SI/HI, HALLUCINATIONS AND PARANOIA. PT CONTRACTED FOR SAFETY. MEDICATION COMPLIANT. CALM, COOPERATIVE. HAD HS SNACK. NO DISTRESS NOTED. P-WILL CONTINUE TO MONTIOR FOR SI/HI, MOODS AND BEHAVIORS. Q 15 MIN CHECKS MAINTAINED.
--- NOTE | 2020-03-02 06:02 | NUR ---
24 HR chart check completed. NOTIFIED DR. GUILLEN OF BNP 164 AND CURRENT DAILY WEIGHT OF 230.2, NNO AT THIS TIME. PT SLEPT 5 HOURS.
[2020-03-02 06:32] LABS: INTERNATIONAL NORM RATIO 3.3 (2.0-3.5)
[2020-03-02 07:39] VITALS: BP 116/55
--- NOTE | 2020-03-02 08:30 | NUR ---
Treatment Plan meeting was held this a.m. with SULAIMAN Vernon RN, AT and Lease Attendant in attendance. Plan for discharge Saturday or Next week. Pt. will return home at discharge.
--- NOTE | 2020-03-02 09:25 | NUR ---
DR CARLTON ON UNIT TO ASSESS PATIENT, UPDATE PROVDED.
--- NOTE | 2020-03-02 09:47 | NUR ---
SPOKE WITH DR ANNE AT [phone] RE: PT PT/INR RESULTS, PER DT OMID GO AHEAD AND START TODAY'S LOWER DOSE AND GO FROM THERE. NO ADDITIONAL ORDERS AT THIS TIME.
--- NOTE | 2020-03-02 11:52 | NUR ---
AM GROUP PT ATTENDED MORNING GROUP THERAPY AND PARTICIPATED IN THE EXERCISES AND IN CONVERSATION. PT LEFT THE DAYROOM TO SPEAK WITH THE IMPOSER AND DID NOT RETURN. PT EXPRESSED NO SUICIDAL IDEATIONS WHILE IN GROUP.
--- NOTE | 2020-03-02 12:22 | NUR ---
Met with pt individually this AM. Pt voiced concern over fluid retention and stated that this is worsening his depression. Pt stated that he is worried to return home and fears that if he would worsen, there would be no one there to help him. Problem solved with pt. Pt is agreeable to VNA and this fiction writer will contact [facility] to see if they still have the [facility] program there, which would be beneficial to pt. 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 He also spoke of the added stress and isolation that he has experienced because od COVID.
--- NOTE | 2020-03-02 13:10 | NUR ---
Received call from Ila at [facility]. LCD 03/01, NRD 03/02. Faxed CCR to [place] . Awaiting response.
--- NOTE | 2020-03-02 15:45 | NUR ---
PM GROUP PT WAS PRESENT FOR AFTERNOON GROUP THERAPY BUT CHOSES NOT TO PARTICIPATE. PT IS CONTENT TO LISTEN TO MUSIC, OBSERVE AND SOCIALIZE. PT EXPRESSED NO SUICIDAL IDEATIONS WHILE IN GROUP.
--- NOTE | 2020-03-02 17:00 | NUR ---
JESSICA FROM PHARMACY CALLED AND UPDATED THAT PATIENT NOT BEING DISCHARGED ON THIS DAY. PHARMACY AWARE THAT GENVOYA BOTTLE WILL BE OPENED DUE TO PATIENT STILL ADMITTED ON UNIT
[2020-03-02 19:14] VITALS: BP 114/60
--- NOTE | 2020-03-02 22:09 | NUR ---
P-PREOCCUPIED, ISOLATIVE I-REDIRECTION WITH 1:1 THERAPEUTIC INTERVENTIONS AND PRESENT REALITY. EDUCATE AND ENCOURAGE MEDICATION COMPLIANCE R-PATIENT MEDICATON COMPLAINT WITH MEDICATIONS AT HS. PATIENT PROVIDED NOURISHMENT AND FLUIDS AT HS. PATIENT WITH LIMITED INTERACTION WITH PEERS IN DINING AREA. PATIENT PREOCCUPIED WITH MEDICATIONS AT HS. PATIENT WITH NO HALLUCINATIONS OR DELUSIONS. PATIENT WITH NO HOMICIDAL OR SUICIDAL IDEATIONS. P-CONTINUE TO ENCOURAGE MEDICATION COMPLIANCE, ENCOURAGE GROUP THERAPY WHILE AWAKE
--- NOTE | 2020-03-03 06:56 | NUR ---
PATIENT SLEPT 4 HOURS INTERRUPTED SLEEP THROUGHOUT SHIFT. Q 15 MINUTE CHECKS MAINTAINED. 24 HR chart check completed.
[2020-03-03 07:49] VITALS: BP 111/63
--- NOTE | 2020-03-03 08:54 | NUR ---
Patient resting quietly with no c/o discomfort. Respirations easy and regular. Vital signs stable. No overt distress. [place] M[place] PT ATE BREAKFAST. SITTING IN DINING ROOM WITH PEERS, AWAKE, ALERT AND VERBAL. ON UNIT TO SEE PT AT THIS TIME, UPDATE GIVEN.
--- NOTE | 2020-03-03 09:30 | NUR ---
Treatment Plan meeting was held this a.m. with Dr. Crouch, RN, AT, TURBO ELECTRIC OPERATOR-S and Help Desk Supervisor in attendance. Plan for discharge Saturday with return home.
--- NOTE | 2020-03-03 09:34 | NUR ---
ON UNIT TO SEE PT AT THIS TIME.
--- NOTE | 2020-03-03 12:00 | NUR ---
AM GROUP PT ATTENDED MORNING GROUP THERAPY AND PARTICIPATED BY SOCIALIZING WITH STAFF AND PEERS. PT EXPRESSED NO SUICIDAL IDEATIONS WHILE IN GROUP.
--- NOTE | 2020-03-03 12:47 | NUR ---
SPOKE WITH DR ANNE RE: PT WEIGHT GAIN AND PT THINKING HE HAS CHF, PER DR ANNE WITHOUT DIAGNOSTIC TESTING, THEY CANNOT CONFIRM THE DIAGNOSIS. ADVISED DR ANNE THAT DR BARNES WOULD LIKE SOMEONE TO SPEAK WITH THE PT PRIOR TO DC TO PROVIDE EDUCATION.
--- NOTE | 2020-03-03 14:31 | NUR ---
CALLED AND SPOKE WITH DR ANNE RE: SOMEONE COMING TO SPEAK WITH PT RE: PT MEDICAL DIAGNOSIS. ADVISED DR THAT PT SPOKE WITH WEIGH BOX TENDER AND STATED "I WILL NEED TIME TO PROCESS WHAT THEY SAY TO ME, I AM IN A FRAGILE STATE YOU KNOW." PER DR ANNE, SOMEONE WILL BE UP TO SPEAK WITH PT WHEN THEY CAN.
--- NOTE | 2020-03-03 14:41 | NUR ---
DR ANNE ON UNIT TO SPEAK WITH PT.
--- NOTE | 2020-03-03 15:41 | NUR ---
PM GROUP PT WAS IN AND OUT OF AFTERNOON GROUP THERAPY. PT SITS AND SOCIALIZES A LITTLE BUT OTHERWISE JUST OBSERVES. PT EXPRESSED NO SUICIDAL IDEATIONS WHILE IN GROUP
--- NOTE | 2020-03-03 15:47 | NUR ---
PT ALERT TO PERSON, PLACE, TIME AND SITUATION. PT MED COMPLIANT WITHOUT DIFFICULTY, MED EDUCATION PRVOIDED. PT CALM, PT REPORTS FEELING DEPRESSED, PT REMAINS ISOLATIVE AT TIMES. PT ENCOURAGED TO PARTICIPATE IN GROUPS/ACTIVITIES. PT DENIES ANY SUICIDAL THOUGHTS, VERBALLY CONTRACTS FOR SAFETY. NO HALLUCINATIONS OR DELUSIONS NOTED. PT AMBULATORY THROUGHOUT UNIT, GAIT STEADY. PT CONTINENT OF BOWEL AND BLADDER. PLAN IS TO MONITOR PT BEHAVIORS ON Q15 MIN SAFETY CHECKS, ENCOURAGE MED COMPLIANCE AND PROVIDE MED EDUCATION, ENCOURAGE GROUP PARTICIPATION AND SOCIALIZATION.
[2020-03-03 19:06] VITALS: BP 108/72
--- NOTE | 2020-03-03 19:51 | NUR ---
Patient resting quietly with no c/o discomfort. Respirations easy and regular. Vital signs stable. No overt distress. NATALIYA RAND
--- NOTE | 2020-03-04 06:13 | NUR ---
PT SLEPT 4 INTERRUPTED HOURS
[2020-03-04 07:02] LABS: INTERNATIONAL NORM RATIO 2.7 (2.0-3.5)
[2020-03-04 07:03] LABS: BUN 10 mg/dl (7-24); CHLORIDE 107 mmol/L (98-107); POTASSIUM 4.1 mmol/L (3.5-5.1); SODIUM 139 mmol/L (136-145)
[2020-03-04 07:30] VITALS: BP 117/67
--- NOTE | 2020-03-04 09:26 | NUR ---
IP 2 additional days anthony per Ila restrepo [facility], LCD 03/03, NRD 03/04. Ref # [id number]
[2020-03-04] MEDS ORDERED: LISINOPRIL5 MG PO (09:48)
[2020-03-04] MEDS ORDERED: JANTOVEN4 M1 PO (09:48)
[2020-03-04] MEDS ORDERED: FUROSEMIDE20 M1 PO (09:48)
[2020-03-04] MEDS ORDERED: LACTULOSE20 GM/30 M PO (09:51)
[2020-03-04] MEDS ORDERED: VITAMIN D3125 MC1 PO (09:51)
[2020-03-04] MEDS ORDERED: FANAPT4 MG PO (09:55)
[2020-03-04] MEDS ORDERED: ROZEREM8 MG PO (09:55)
[2020-03-04] MEDS ORDERED: DULOXETINE HCL60 MG PO (09:55)
[2020-03-04] MEDS ORDERED: FANAPT1 MG PO (09:55)
--- NOTE | 2020-03-04 11:43 | NUR ---
AM GROUP/YAMATTYEE PT ATTENDED MORNING GROUP THERAPY AND PARTICIPATED BY PLAYING [employer]. PT WAS FOCUSED AND ANIMATED. THIS IS THE FIRST TIME PT HAS PARTICIPATED. PT EXPRESSED NO SUICIDAL IDEATIONS WHILE IN GROUP.
--- NOTE | 2020-03-04 11:59 | NUR ---
PT ALERT TO PERSON, PLACE, TIME AND SITUATION. PT MED COMPLIANT WITHOUT DIFFICULTY, MED EDUCATION PROVIDED. PT CALM, MOOD IS STABLE. PT DENIES ANY SUICIDAL THOUGHTS, VERBALLY CONTRACTS FOR SAFETY IF SUCH THOUGHTS ARISE. NO HALLUCINATIONS OR DELUSIONS NOTED. NO SKIN ISSUES NOTED PER PT. PT AMBULATORY THROUGHOUT UNIT, GAIT STEADY. PT CONTINENT OF BOWEL AND BLADDER. DISCHARGE PAPERWORK REVIEWED WITH PT. PLAN IS TO PREPARE PT FOR DISCHARGE.
--- NOTE | 2020-03-04 12:14 | NUR ---
THIS RN AND 2ND RN REVIEWED PT'S DISCHARGE INSTRUCTIONS WITH PT. ANSWERED ALL QUESTIONS. RETURNED PT'S PERSONAL ITEMS, LOCK BOX ITEMS AND HOME MEDICATIONS TO PT. PT REQUESTED THAT THE HOSPITAL DISPOSE OF HIS PSYCHIATRIC MEDICATIONS THAT HE IS NO LONGER TAKING (CELEXA, TRILEPTAL, BUSPAR, MELATONIN AND LATUDA). PT STATES "I DON'T WANT TO TAKE THOSE HOME SINCE I HAVE NEW PSYCH MEDS". WITNESSED BY 2ND RN. THIS RN PHONED PHARMACY, SPOKE TO JEFFERY WHO STATES THEY CAN DISPOSE OF THEM ON MEDICATION TAKE BACK DAY TOMORROW. PT HAD UTILIZED ALL OF HIS GENVOYA THAT WAS BROUGHT TO THE HOSPITAL THROUGHOUT THE COURSE OF HIS STAY, THEREFORE, NO GENVOYA WAS AVAILABLE TO BE SENT HOME WITH PT.
--- NOTE | 2020-03-04 12:14 | NUR ---
PT DISCHARGED TO HOME VIA CAB, ESCORTED OFF UNIT VIA [facility]. PT DC PAPERWORK AND BELONGINGS SENT WITH PT.
--- NOTE | 2020-03-04 13:19 | NUR ---
Faxed discharge clinical to Ila restrepo [facility]. IP stay anthony, ref # [id number].
--- NOTE | 2020-03-04 14:06 | NUR ---
Patient discharged to home today. Follow-up was scheduled with [facility] - 03/17/20 at 9:30 with Shilpa Alcantara POTTER OR CERAMIC ARTIST and 03/14/20 with Davida Hahn PhD at 16:00. While at [facility], pt's suicidal ideations diminished. Pt reported that his depression was decreasing. Pt participated in programming and was pleasant and cooperative with staff and his peers. Pt will also have VNA services through [facility].
== END 2020-03-04 12:15 | disposition home health service (06) | DRG 885 ==
LOC: 3N 14:42
PROVIDERS: Family Medicine; Internal Medicine; Nurse Practitioner Women's Health; Student in an Organized Health Care Education/Training Program; ADMIT Psychiatry & Neurology Psychiatry; ATTEND Psychiatry & Neurology Psychiatry
DX: F33.2 Major depressive disorder, recurrent severe without psychotic features (principal); R45.851 Suicidal ideations; E87.1 Hypo-osmolality and hyponatremia; J44.9 Chronic obstructive pulmonary disease, unspecified; J45.909 Unspecified asthma, uncomplicated; I10 Essential (primary) hypertension; E11.9 Type 2 diabetes mellitus without complications; F41.9 Anxiety disorder, unspecified; E78.5 Hyperlipidemia, unspecified; Z20.828 Contact with and (suspected) exposure to other viral communicable diseases; I48.91 Unspecified atrial fibrillation; Z79.4 Long term (current) use of insulin; Z87.442 Personal history of urinary calculi; I25.2 Old myocardial infarction; Z95.5 Presence of coronary angioplasty implant and graft; Z90.49 Acquired absence of other specified parts of digestive tract; Z95.1 Presence of aortocoronary bypass graft; Z82.49 Family history of ischemic heart disease and other diseases of the circulatory system; Z82.3 Family history of stroke; Z88.2 Allergy status to sulfonamides